=== PATIENT | female | born 1950 | race African-American/Black ===

== ENCOUNTER 2017-12-13 20:40 | Inpatient (IN) | payer MEDICARE, MEDICAID ==
[~2017-12-13] VITALS: Ht 149.9 cm; Wt 62.6 kg
[2017-12-13] MEDS ORDERED: HYDR-3326 PO (20:47)
[2017-12-13] MEDS ORDERED: NORVASC PO (20:47)
[2017-12-13] MEDS ORDERED: LORA2TAB PO (20:47)
[2017-12-13] MEDS ORDERED: MORP30CP13 PO (20:58)
[2017-12-13] MEDS ORDERED: MAGNESIUM HYDROXIDE 30 ML LIQUID UDC PO PRN (21:30)
[2017-12-13] MEDS ORDERED: ACETAMINOPHEN 325 MG TABLET PO PRN (21:30)
[2017-12-13] MEDS ORDERED: MAG HYDROX/AL HYDROX/SIMETH 30 ML LIQUID UDC PO PRN (21:30)
[2017-12-13 21:57] VITALS: BP 171/81
[2017-12-13 21:59] VITALS: BP 161/90
[2017-12-13] MEDS: HYDROCODONE/APAP 5-325MG TABLET PO PRN (22:05)
[2017-12-13] MEDS: LORAZEPAM 1 MG TABLET PO PRN (23:27)
[2017-12-14] MEDS: HYDROCODONE/APAP 5-325MG TABLET PO PRN ×3 (05:42→18:08)
[2017-12-14 05:57] LABS: *BILIRUBIN,URIN NEGATIVE (NEGATIVE); *BLOOD, URINE NEGATIVE (NEGATIVE); *CLARITY,URINE SLIGHTLY CLOUDY (CLEAR); *COLOR,URINE LIGHT YELLOW (YELLOW); *KETONES,URINE NEGATIVE (NEGATIVE); *PROTEIN,URINE NEGATIVE (NEGATIVE); *UROBILINOGEN,URINE 0.2 E.U./dl (NORMAL); LEUKOCYTE ESTERASE ,URINE 1+ (NEGATIVE); NITRITE, URINE NEGATIVE (NEGATIVE); UGLUCOSE NEGATIVE (NEGATIVE)
[2017-12-14 06:10] LABS: RBC,URINE 0-3 /HPF (0-3)
[2017-12-14 06:11] LABS: BACTERIA,URINE NONE SEEN /HPF (NONE SEEN); SQUAMOUS EPITHELIAL CELL,UR FEW /HPF (NONE SEEN)
[2017-12-14 06:21] LABS: *AMPHETAMINE, URINE NEGATIVE (NEGATIVE); *BARBITURATE, URINE NEGATIVE (NEGATIVE); *CANNABINOID, URINE NEGATIVE (NEGATIVE); *COCCAINE, URINE NEGATIVE (NEGATIVE); *OPIATE, URINE POSITIVE (NEGATIVE); *PHENCYCLIDINE SCREEN,URINE NEGATIVE (NEGATIVE)
[2017-12-14 07:07] LABS: BASOPHILS # (AUTO) 0.2 K/uL (0.0-8.0); BASOPHILS % (AUTO) 2.9 % (0.0-2.0); EOSINOPHILS # (AUTO) 0.2 K/uL (0.0-0.7); EOSINOPHILS % (AUTO) 3.2 % (0.0-7.0); HEMATOCRIT 34.7 % (31.2-41.9); HEMOGLOBIN 11.4 g/dL (10.9-14.3); LYMPHOCYTES # (AUTO) 2.2 K/uL (20.0-40.0); LYMPHOCYTES % (AUTO) 30.6 % (20.5-51.5); MEAN CORPUSCULAR HEMOGLOBIN 28.3 uug (24.7-32.8); MEAN CORPUSCULAR HGB CONC 33 g/dL (32.3-35.6); MEAN CORPUSCULAR VOLUME 86.5 fL (75.5-95.3); MONOCYTES # (AUTO) 0.7 K/uL (2.0-10.0); MONOCYTES % (AUTO) 9.3 % (0.0-11.0); NEUTROPHILS # (AUTO) 3.8 K/uL (1.8-8.9); PLATELET COUNT (AUTO) 184 K/uL (179-408); RED BLOOD CELL COUNT(AUTO) 4.01 MIL/uL (3.63-4.92)
[2017-12-14 07:30] VITALS: BP 173/82
[2017-12-14] MEDS: LORAZEPAM 1 MG TABLET PO PRN ×2 (07:51→14:12)
[2017-12-14 08:12] LABS: BILIRUBIN,TOTAL 0.1 mg/dL (0.2-1.0); CREATININE 0.9 mg/dL (0.6-1.3); MAGNESIUM 1.8 mg/dL (1.8-2.4); PHOSPHOROUS 3.9 mg/dL (2.5-4.9); POTASSIUM 4.2 mmol/L (3.5-5.1); TOTAL PROTEIN, SERUM 6.9 g/dL (6.4-8.2)
[2017-12-14] MEDS: NICOTINE 21 MG/24HR PATCH TD SCH (08:26)
[2017-12-14 09:24] LABS: THYROID STIMULATING HORMONE 3.42 mIU/mL (0.358-3.740)
[2017-12-14 15:42] VITALS: BP 168/81
[2017-12-14] MEDS: QUETIAPINE FUMARATE 25 MG TABLET PO SCH ×2 (17:19→20:16)
[2017-12-14] MEDS: DOCUSATE SODIUM 100 MG CAPSULE PO SCH (20:16)
[2017-12-14] MEDS: METOPROLOL TARTRATE 25 MG TABLET PO SCH (20:17)
[2017-12-14] MEDS: DIVALPROEX 250 MG TABLET.DR PO SCH (20:17)
[2017-12-14 20:45] VITALS: BP 134/69
[2017-12-14] MEDS: TEMAZEPAM 7.5 MG CAPSULE PO PRN (22:04)
[2017-12-15] MEDS: HYDROCODONE/APAP 10-325 MG TABLET PO PRN ×3 (03:32→19:47)
[2017-12-15] MEDS: LORAZEPAM 1 MG TABLET PO PRN ×2 (05:25→13:00)
[2017-12-15 07:30] VITALS: BP 156/81
[2017-12-15] MEDS: DIVALPROEX 250 MG TABLET.DR PO SCH ×3 (08:59→20:51)
[2017-12-15] MEDS: QUETIAPINE FUMARATE 25 MG TABLET PO SCH ×3 (08:59→20:50)
[2017-12-15] MEDS: NICOTINE 21 MG/24HR PATCH TD SCH (08:59)
[2017-12-15] MEDS: METOPROLOL TARTRATE 25 MG TABLET PO SCH ×2 (09:00→20:50)
[2017-12-15] MEDS: AMLODIPINE 5 MG TABLET PO SCH (09:00)
[2017-12-15 15:28] VITALS: BP 123/76
[2017-12-15 19:43] VITALS: BP 130/83
[2017-12-15] MEDS: DOCUSATE SODIUM 100 MG CAPSULE PO SCH (20:51)
[2017-12-15] MEDS: TEMAZEPAM 7.5 MG CAPSULE PO PRN (22:12)
[2017-12-15] MEDS: SULFAMETH/TRIMETH 800/160 MG TABLET PO SCH (23:07)
[2017-12-16] MEDS: HYDROCODONE/APAP 10-325 MG TABLET PO PRN ×2 (03:27→15:00)
[2017-12-16] MEDS: LORAZEPAM 1 MG TABLET PO PRN ×2 (07:06→17:06)
[2017-12-16 07:30] VITALS: BP 133/76
[2017-12-16] MEDS: DIVALPROEX 250 MG TABLET.DR PO SCH ×3 (10:00→20:42)
[2017-12-16] MEDS: SULFAMETH/TRIMETH 800/160 MG TABLET PO SCH ×2 (10:00→20:42)
[2017-12-16] MEDS: NICOTINE 21 MG/24HR PATCH TD SCH (10:00)
[2017-12-16] MEDS: AMLODIPINE 5 MG TABLET PO SCH (10:01)
[2017-12-16] MEDS: METOPROLOL TARTRATE 25 MG TABLET PO SCH ×2 (10:01→22:07)
[2017-12-16] MEDS: QUETIAPINE FUMARATE 25 MG TABLET PO SCH ×3 (10:02→20:50)
[2017-12-16 14:44] VITALS: BP 108/55
[2017-12-16 20:00] VITALS: BP 99/51
[2017-12-16] MEDS: DOCUSATE SODIUM 100 MG CAPSULE PO SCH (20:42)
[2017-12-16] MEDS: TEMAZEPAM 7.5 MG CAPSULE PO PRN (22:53)
[2017-12-17] MEDS: HYDROCODONE/APAP 10-325 MG TABLET PO PRN ×3 (05:13→19:41)
[2017-12-17 07:30] VITALS: BP 115/60
[2017-12-17] MEDS: LORAZEPAM 1 MG TABLET PO PRN ×2 (07:57→14:14)
[2017-12-17] MEDS: SULFAMETH/TRIMETH 800/160 MG TABLET PO SCH (08:01)
[2017-12-17] MEDS: NICOTINE 21 MG/24HR PATCH TD SCH (08:01)
[2017-12-17] MEDS: QUETIAPINE FUMARATE 25 MG TABLET PO SCH ×2 (08:01→16:42)
[2017-12-17] MEDS: AMLODIPINE 5 MG TABLET PO SCH (08:01)
[2017-12-17] MEDS: DIVALPROEX 250 MG TABLET.DR PO SCH ×3 (08:01→20:15)
[2017-12-17] MEDS: METOPROLOL TARTRATE 25 MG TABLET PO SCH ×2 (08:02→20:14)
[2017-12-17 17:08] VITALS: BP 117/54
[2017-12-17 20:14] VITALS: BP 125/60
[2017-12-17] MEDS: DOCUSATE SODIUM 100 MG CAPSULE PO SCH (20:14)
[2017-12-17] MEDS: QUETIAPINE FUMARATE 100 MG TABLET PO SCH (20:15)
[2017-12-17] MEDS ORDERED: QUETIAPINE FUMARATE 25 MG TABLET PO SCH (21:00)
[2017-12-17] MEDS: CEPHALEXIN MONOHYDRATE 250 MG CAPSULE PO SCH (21:33)
[2017-12-17] MEDS: TEMAZEPAM 7.5 MG CAPSULE PO PRN (22:08)
[2017-12-18] MEDS: LORAZEPAM 1 MG TABLET PO PRN ×3 (02:14→20:50)
[2017-12-18] MEDS: HYDROCODONE/APAP 10-325 MG TABLET PO PRN ×2 (05:31→13:49)
[2017-12-18] MEDS: CEPHALEXIN MONOHYDRATE 250 MG CAPSULE PO SCH ×3 (05:35→22:06)
[2017-12-18 07:30] VITALS: BP 122/64
[2017-12-18] MEDS: NICOTINE 21 MG/24HR PATCH TD SCH (08:56)
[2017-12-18] MEDS: QUETIAPINE FUMARATE 25 MG TABLET PO SCH ×2 (08:57→17:07)
[2017-12-18] MEDS: DIVALPROEX 250 MG TABLET.DR PO SCH ×3 (08:57→20:23)
[2017-12-18] MEDS: METOPROLOL TARTRATE 25 MG TABLET PO SCH ×2 (08:57→20:26)
[2017-12-18] MEDS: AMLODIPINE 5 MG TABLET PO SCH (08:58)
[2017-12-18 16:31] VITALS: BP 114/63
[2017-12-18 20:00] VITALS: BP 123/66
[2017-12-18] MEDS: DOCUSATE SODIUM 100 MG CAPSULE PO SCH (20:23)
[2017-12-18] MEDS: QUETIAPINE FUMARATE 100 MG TABLET PO SCH (20:24)
[2017-12-18] MEDS: TEMAZEPAM 7.5 MG CAPSULE PO PRN (22:11)
[2017-12-19] MEDS: HYDROCODONE/APAP 10-325 MG TABLET PO PRN ×3 (05:18→23:17)
[2017-12-19] MEDS: CEPHALEXIN MONOHYDRATE 250 MG CAPSULE PO SCH ×3 (05:50→22:05)
[2017-12-19] MEDS: LORAZEPAM 1 MG TABLET PO PRN ×2 (07:14→17:44)
[2017-12-19 07:30] VITALS: BP 141/73
[2017-12-19] MEDS: NICOTINE 21 MG/24HR PATCH TD SCH (09:40)
[2017-12-19] MEDS: DIVALPROEX 250 MG TABLET.DR PO SCH ×3 (09:40→20:49)
[2017-12-19] MEDS: QUETIAPINE FUMARATE 25 MG TABLET PO SCH ×2 (09:41→17:44)
[2017-12-19] MEDS: AMLODIPINE 5 MG TABLET PO SCH (09:41)
[2017-12-19] MEDS: METOPROLOL TARTRATE 25 MG TABLET PO SCH ×2 (09:41→20:48)
[2017-12-19 15:55] VITALS: BP 121/68
[2017-12-19 20:36] VITALS: BP 119/60
[2017-12-19] MEDS: QUETIAPINE FUMARATE 100 MG TABLET PO SCH (20:49)
[2017-12-19] MEDS: DOCUSATE SODIUM 100 MG CAPSULE PO SCH (20:49)
[2017-12-20] MEDS: TEMAZEPAM 7.5 MG CAPSULE PO PRN (02:00)
[2017-12-20] MEDS: HYDROCODONE/APAP 10-325 MG TABLET PO PRN ×3 (05:35→21:31)
[2017-12-20] MEDS: CEPHALEXIN MONOHYDRATE 250 MG CAPSULE PO SCH ×3 (05:36→21:29)
[2017-12-20 07:30] VITALS: BP 123/64
[2017-12-20] MEDS: NICOTINE 21 MG/24HR PATCH TD SCH (09:14)
[2017-12-20] MEDS: DIVALPROEX 250 MG TABLET.DR PO SCH ×3 (09:14→20:41)
[2017-12-20] MEDS: AMLODIPINE 5 MG TABLET PO SCH (09:15)
[2017-12-20] MEDS: LORAZEPAM 1 MG TABLET PO PRN ×2 (09:15→17:10)
[2017-12-20] MEDS: METOPROLOL TARTRATE 25 MG TABLET PO SCH ×2 (09:15→20:42)
[2017-12-20] MEDS: QUETIAPINE FUMARATE 25 MG TABLET PO SCH ×2 (09:16→17:10)
[2017-12-20 16:03] VITALS: BP 118/71
[2017-12-20 20:00] VITALS: BP 129/72
[2017-12-20] MEDS: QUETIAPINE FUMARATE 100 MG TABLET PO SCH (20:41)
[2017-12-20] MEDS: DOCUSATE SODIUM 100 MG CAPSULE PO SCH (20:42)
[2017-12-21] MEDS: LORAZEPAM 1 MG TABLET PO PRN ×2 (05:07→13:43)
[2017-12-21 07:30] VITALS: BP 111/68
[2017-12-21] MEDS: NICOTINE 21 MG/24HR PATCH TD SCH (08:21)
[2017-12-21] MEDS: QUETIAPINE FUMARATE 25 MG TABLET PO SCH ×2 (08:22→16:29)
[2017-12-21] MEDS: AMLODIPINE 5 MG TABLET PO SCH (08:22)
[2017-12-21] MEDS: DIVALPROEX 250 MG TABLET.DR PO SCH ×3 (08:22→20:31)
[2017-12-21] MEDS: METOPROLOL TARTRATE 25 MG TABLET PO SCH ×2 (08:22→20:32)
[2017-12-21] MEDS: HYDROCODONE/APAP 10-325 MG TABLET PO PRN ×2 (11:19→21:36)
[2017-12-21 15:33] VITALS: BP 115/69
[2017-12-21 20:00] VITALS: BP 120/65
[2017-12-21] MEDS: DOCUSATE SODIUM 100 MG CAPSULE PO SCH (20:31)
[2017-12-21] MEDS: QUETIAPINE FUMARATE 100 MG TABLET PO SCH (20:32)
[2017-12-21] MEDS: TEMAZEPAM 7.5 MG CAPSULE PO PRN (23:32)
[2017-12-22] MEDS: LORAZEPAM 1 MG TABLET PO PRN (05:03)
[2017-12-22 07:30] VITALS: BP 143/72
[2017-12-22] MEDS: METOPROLOL TARTRATE 25 MG TABLET PO SCH (08:27)
[2017-12-22] MEDS: NICOTINE 21 MG/24HR PATCH TD SCH (08:27)
[2017-12-22] MEDS: DIVALPROEX 250 MG TABLET.DR PO SCH (08:27)
[2017-12-22] MEDS: QUETIAPINE FUMARATE 25 MG TABLET PO SCH (08:27)
[2017-12-22 08:28] VITALS: BP 143/72
[2017-12-22] MEDS: AMLODIPINE 5 MG TABLET PO SCH (08:28)
== END 2017-12-22 12:00 | disposition home or self-care (01) | DRG 885 ==
LOC: ER 20:41 → GPS 21:07
PROVIDERS: ADMIT Psychiatry & Neurology Psychiatry; ATTEND Internal Medicine
PROC: 0HBRXZZ Excision of Toe Nail, External Approach (ICD-10-PCS; principal; 2017-12-15)
DX: F20.0 Paranoid schizophrenia (principal); N17.0 Acute kidney failure with tubular necrosis; G40.909 Epilepsy, unspecified, not intractable, without status epilepticus; R45.851 Suicidal ideations; F41.9 Anxiety disorder, unspecified; B35.1 Tinea unguium; B35.3 Tinea pedis; N39.0 Urinary tract infection, site not specified; G89.29 Other chronic pain; Z90.710 Acquired absence of both cervix and uterus; Z91.14 Patient's other noncompliance with medication regimen; M79.7 Fibromyalgia; I11.9 Hypertensive heart disease without heart failure; M21.612 Bunion of left foot; M21.611 Bunion of right foot; L84 Corns and callosities; R26.2 Difficulty in walking, not elsewhere classified
CPT/HCPCS: 36415; 71045; 80164; 80307; 83735; 84100; 84443; 85025; 87086; 93005; A4663; J3490